=== PATIENT | female | born 1995 | race Caucasian/White ===

== ENCOUNTER 2023-09-11 08:16 | Inpatient (IN) ==
[2023-09-11] MEDS ORDERED: LIDOCAINE 1% LOCAL 20 ML VIAL INFIL PRN (08:59)
[2023-09-11] MEDS ORDERED: OXYTOCIN 30 UNITS/NSS 30 UNITS/500 ML BAG IV PRN (08:59)
--- NOTE | 2023-09-11 09:03 | History & Physical Report ---
Date of Service September 11, 2023 Assessment & Plan (1) Positive test for herpes simplex virus (HSV) antibody: (2) Carrier of group B Streptococcus: (3) Supervision of normal first : Plan Will admit to L&D for management of labor VSS Fetus cat 1 Patient without current genital HSV lesions Rh negative mother; may need Rhogam pp GBS positive; treat with PCN Rubella immune Pitocin as needed Epidural prn Patient in agreement History of Present Illness Chief Complaint: LABOR CHECK Primary Care Provider: NO PCP Any is a 28 y/o female currently at [facility] 38 1/7 WGA with an GENIA 09/24/23 as determined by certain LMP who is here for labor check after. She believes she broke her water earlier this morning around 4am, and has continued to leak fluid even after she arrived to the hospital. She has also been having contractions since 4:30am this morning that were occurring every 3 minutes and are still present but were not very consistent in their frequency. The intensity of her contractions has also increased since they started earlier this morning. She has not significant PMHx, but has had a positive result for genital HSV in blood work for which she was started on Valtrex at 36 wga, but has not had any lesions or prodrome. (+) contractions (+) movement (+) fluid loss (-) bloody show External FHT and external uterine monitors used * Category 1 tracing * Moderate FHT variability. Had regular appointments since 1st trimester. OB Labs: Blood Type A Negative 02/27/23 Antibody Screen NEGATIVE 07/03/23 Hemoglobin 11.9 g/dl (12.0-16.0) L 07/03/23 Hematocrit 34.9 % (37.0-47.0) L 07/03/23 Mean Corpuscular Volume 90.2 fL (80.0-100.0) 02/27/23 Platelet Count 292 K/uL (130-400) 02/27/23 Rubella IgG Antibody Immune (Immune) 02/27/23 Rapid Plasma Reagin Nonreactive (Nonreactive) 02/27/23 Hepatitis B Surface Antigen. NON-REACTIVE (NON-REACTIVE) 02/27/23 Hepatitis C Antibody (EIA) NON-REACTIVE (NON-REACTIVE) 02/27/23 HIV (1&2) Ag and Ab Confirmation NON-REACTIVE (NON-REACTIVE) 02/27/23 Glucose 1 Hour 50 gm Load 117 mg/dl (70-130) 07/10/23 OB Optional Labs: Chlamydia trachomatis RNA Not Detected (NotDetected) 02/27/23 Neisseria gonorrhoeae RNA Not Detected (NotDetected) 02/27/23 Labs Reviewed: Declines genetics--mln Allergies Allergy/AdvReac Type Severity Reaction Status Date / Time No Known Allergies Allergy Verified 09/06/23 10:35 Home Medications Medication Instructions Recorded Confirmed Type 21-iron fu-folic acid PO 02/22/23 09/06/23 History [ Complete] promethazine 12.5 mg rectal 12.5 mg RI Q6H PRN nausea and 03/25/23 09/06/23 Rx suppository vomiting #12 ea valacyclovir 500 mg tablet 500 mg PO BID #60 tabs 08/27/23 09/11/23 Rx (Valtrex) Patient History Medical History (Updated 09/11/23 @ 08:22 by Ingrid Swan RN) PTSD (post-traumatic stress disorder) Something that happened in the [employer] that the patient does not wish to discuss. Not on ant medications at this time. Varicella vaccination Surgical History (Updated 09/11/23 @ 08:21 by Ingrid Swan RN) Status post surgery nerve ablation of cervix. S/P wisdom tooth extraction S/P breast augmentation 2017, 2019, 2019, 2020 Family History (Updated 02/22/23 @ 15:07 by Rhiannon Wilde) Denies family history of Ovarian cancer Breast cancer Colorectal cancer Social History (Updated 09/11/23 @ 08:24 by Ingrid Swan RN) Smoking Status: Never smoker Do You Dip or Chew Tobacco: No; Hx Alcohol Use: No Hx Substance Use: No Preferred Language: Yi Communication Ability: Effective Concrete Paver Required: No Beliefs That Will Affect Care: None marital status: Single marital status details: AUGIE Chapman (33) [phone] Current Living Situation: Alone Current Living Situation Comment: lives alone, no pets current occupational status: employed current occupation: [employer] Other Information That Helps Us Care for You: No Feels Safe at Home: Yes Safety Concerns: Feels Safe At This Time Diet: regular Assistive Devices: None ASSOCIATE SALES MANAGER History Last menstrual period: Yes Menstrual reliability: definite Flow: normal Menstrual regularity: regular Monthly: Yes Age at menarche: 13 On control pills at conception: No Date of positive home test: 01/17/23 Menstrual history comments: cycles 28-30 days Details: last pap 2020 - Normal Review of Systems no fever, no chills and no sweats Denies changes in vision. Denies shortness of breath or respiratory difficulty. no chest pain and no palpitations no dysuria no headache(s) Physical Exam Physical Exam: General: Alert, oriented x3. Afebrile. No acute distress. Eyes: Pupils equal and reactive to light bilaterally. Extraocular movement intact bilaterally. Cardiac: Regular rate and rhythm, no murmurs/rubs/gallops. Respiratory: Clear to auscultation bilaterally a/p, no wheezes/rales/rhonchi. No increased work of breathing. Symmetrical chest rise. No respiratory distress. Abdomen: Gravid; FHR baseline of 145-150 bpm; Vertex position Pelvic: 3 / 100 / -[address] Brasher Lower Extremities: No lower extremity edema or swelling. No deep calf pain. Leila's negative bilaterally Results & Data Vital Signs (Past 12 Hours) Vital Signs Temp Resp 09/11/23 08:25 36.8 C 20
[2023-09-11] MEDS: LACTATED RINGER'S 1,000 ML IV PRN (09:22)
[2023-09-11] MEDS: PENICILLIN GK 6 MU in DEXTROSE 5% 250 ML IV STA (09:35)
[2023-09-11 09:54] LABS: Hematocrit (blood only) 36.8 % (37.0-47.0); Hemoglobin 12.5 g/dl (12.0-16.0); Mean Corpuscular Hemoglobin 29.7 pg (25.0-34.0); Mean Corpuscular Volume 87.4 fL (80.0-100.0); Mean Platelet Volume 11.4 fL (9.4-12.4); Platelet Count 236 K/uL (130-400); RDW Coefficient of Variation 12.6 % (11.5-14.5); RDW Standard Deviation 39.4 fL (36.4-46.3); Red Blood Count 4.21 M/uL (4.20-5.40); White Blood Count 13.11 K/ul (4.8-10.8)
[2023-09-11] MEDS ORDERED: NALOXONE HCL 1 MG in SODIUM CHLORIDE 0.9% 1,000 ML IV PRN (10:12)
[2023-09-11] MEDS ORDERED: NALOXONE HCL 0.4 MG/1 ML VIAL/CARP IV PRN (10:12)
[2023-09-11] MEDS ORDERED: ROPIVACAINE 0.5% PF 5 MG/ML 20 ML VIAL EPI PRN (10:12)
[2023-09-11] MEDS ORDERED: fentANYL 2 MCG/ML BUPIVacaine 0.125%-NSS 100ML BAG EPI PRN (10:12)
[2023-09-11] MEDS ORDERED: diphenhydrAMINE 50 MG/ML VIAL IV PRN (10:12)
[2023-09-11] MEDS ORDERED: fentaNYL citrate PF 100 MCG/2 ML VIAL EPI PRN (10:12)
[2023-09-11] MEDS ORDERED: NALBUPHINE HCL 5 MG in SYRINGE 0 ML IV PRN (10:12)
[2023-09-11] MEDS ORDERED: LIDOCAINE 2% MPF LOCAL 5 ML VIAL EPI PRN (10:12)
[2023-09-11] MEDS ORDERED: ePHEDrine sulfate 50 MG/ML AMP IV PRN (10:12)
[2023-09-11] MEDS ORDERED: SODIUM CHLORIDE 0.9% PF INJ 10 ML VIAL EPI PRN (10:12)
[2023-09-11] MEDS ORDERED: BUPIVACAINE 0.25% PF 30 ML VIAL EPI PRN (10:12)
--- NOTE | 2023-09-11 10:12 | Anesthesiology Consultation ---
Date of Service September 11, 2023 Assessment & Plan ASA ASA2 Proposed Anesthesia Anesthesia Type: Labor Epidural Risk / Benefits Reviewed With: PT / POA / Parent / Guardian, Accepts Plan and Informed Consent Obtained History Height/Weight Height: 5 ft 4 in Weight: 69.853 kg Allergies Allergy/AdvReac Type Severity Reaction Status Date / Time No Known Allergies Allergy Verified 09/06/23 10:35 Medications Home Medications Medication Instructions Recorded Confirmed Last Taken 21-iron fu-folic acid PO 02/22/23 09/06/23 09/11/23 [ Complete] promethazine 12.5 mg rectal 12.5 mg VT Q6H PRN nausea and 03/25/23 09/06/23 Unknown suppository vomiting #12 ea valacyclovir 500 mg tablet 500 mg PO BID #60 tabs 08/27/23 09/11/23 09/10/23 (Valtrex) Active Medications Generic Name Dose Route Start Last Admin Trade Name Freq PRN Reason Stop Dose Admin Lactated Ringer's 1,000 mls @ 125 mls/hr 09/11/23 08:59 09/11/23 10:20 Lr IV 09/13/23 08:58 999 mls/hr .Q8H PRN Administration L&D Protocol Protocol Past Medical History Medical History PTSD (post-traumatic stress disorder) Something that happened in the [employer] that the patient does not wish to discuss. Not on ant medications at this time. Varicella vaccination Exercise / Class Metabolic Activity II 4-5 Yardwork/Stairs/Walk up hill Past Family History Family History Denies family history of Ovarian cancer Breast cancer Colorectal cancer Past Surgical History Surgical History Status post surgery nerve ablation of cervix. S/P wisdom tooth extraction S/P breast augmentation 2017, 2018, 2019, 2020 Past Anesthesia History No Hx of Anesthesia Complications and No Family Hx of Anesthesia Complications History of PONV No Hx of PONV and No Hx of Motion Sickness Social History Smoking Status: Never smoker Do You Dip or Chew Tobacco: No Hx Alcohol Use: No Hx Substance Use: No Review of Systems denies fever/cough/ colds/ chest pain/ SOB/ SARATH denies SARATH Physical Exam Vital Signs Last Vital Signs Temp 36.8 C 09/11/23 08:25 Pulse 88 09/11/23 10:35 Resp 20 09/11/23 08:25 BP 138/84 09/11/23 10:35 Pulse Ox 100 09/11/23 10:32 ENMT Mouth: no TMJ abnormality and no dentition abnormality Thyromental Distance: > or= 3.5 Finger Breadths Mallampati Class: II Neck neck extension not limited Respiratory normal respiratory effort; no respiratory distress Auscultation: lungs clear to auscultation bilaterally Cardiovascular Rate/Rhythm: regular rate and regular rhythm Neurologic moves all extremities Psychiatric Orientation: alert and oriented x 3 Testing Laboratory Results 09/11/23 09:11
[2023-09-11] MEDS: LIDOCAINE 2%/EPINEPHRINE 1:200,000 20 ML PF ONE ×2 (10:28→15:07)
[2023-09-11] MEDS: BUPIVACAINE 0.25% PF 30 ML VIAL ONE ×2 (10:29→15:07)
[2023-09-11] MEDS: fentaNYL citrate PF 100 MCG/2 ML VIAL ONE ×2 (10:29→15:07)
[2023-09-11] MEDS: fentANYL 2 MCG/ML BUPIVacaine 0.125%-NSS 100ML BAG ONE ×2 (10:31→15:25)
[2023-09-11] MEDS: ONDANSETRON INJ 2 MG/ML 2 ML VIAL IV PRN (11:38)
[2023-09-11] MEDS: ePHEDrine sulfate 50 MG/ML AMP ONE ×2 (11:50→15:44)
[2023-09-11] MEDS: SODIUM CHLORIDE 0.9% PF INJ 10 ML VIAL ONE ×2 (11:50→15:44)
[2023-09-11] MEDS: fentaNYL citrate PF 100 MCG/2 ML VIAL EPI STA (12:47)
[2023-09-11] MEDS: BUPIVACAINE 0.25% PF 30 ML VIAL EPI STA (12:47)
[2023-09-11] MEDS: SODIUM CHLORIDE 0.9% PF INJ 10 ML VIAL EPI STA (12:48)
[2023-09-11] MEDS: LIDOCAINE 2%/EPINEPHRINE 1:200,000 20 ML PF EPI STA (12:48)
[2023-09-11] MEDS: PENICILLIN GK 3 MU in DEXTROSE 5% 100 ML IV PRN (13:19)
[2023-09-11] MEDS ORDERED: NURSING L&D Epidural Breakthrough Pain Update ONE (14:27)
--- NOTE | 2023-09-11 15:41 | Communication Note ---
Date of Service: September 11, 2023 Pt with increased pain. Pt reports tingling in legs. Pt is far from delivery and feel that It is better to replace the epidural at a different area. epid ural removed with tip intact. L2-l3 interspace identified. sterile prep/drape/gloves used. 2% lido infiltrated. 18 g touey advanced to flex with air at 5 cm. Easy catheter thread. 2% lido with epi 4 cc injected. negative IV/IT. catheter secured. Divided doses with 100 mcg fentanyl and 5 cc 0.25% bupivicaine. vss. pt reporting better pain control
[2023-09-11] MEDS: OXYTOCIN 30 UNITS/NSS 30 UNITS/500 ML BAG IV PRN (18:37)
--- NOTE | 2023-09-11 19:14 | Delivery Summary ---
Vaginal Delivery Summary Date of Service September 11, 2023 Vaginal Delivery Summary DIAGNOSES: 1. Cobos intrauterine at 38w1d gestation. 2. Spontaneous onset of labor. 3. Group B Streptococcus Pos. PROCEDURE: Spontaneous vaginal delivery without laceration. SURGEON: Ambar Brasher MD. MEDICAL RECEPTIONIST MEDICAL ASSISTANT: None. ESTIMATED BLOOD LOSS: 250 mL. COMPLICATIONS: None. PLACENTA: Spontaneous and intact with a 3-vessel cord. DISPOSITION: Stable to labor and delivery. DESCRIPTION: The patient pushed well and brought the head to in DOA position. The 's head was allowed to deliver with contraction force and no further active pushing, with the perineum protected during this time. There was no nuchal cord. The right shoulder was anterior. The shoulders and body delivered without any difficulty, and the infant was placed on the maternal abdomen. It was vigorous and moving all extremities, and making respiratory efforts. The cord was doubly clamped by the MD and then cut by the FOB. The placenta delivered spontaneously and was noted to be intact and with a 3VC. The cervix, vagina and perineum were examined and were found to be without defect requiring repair. The fundus was firm and lochia minimal immediately after delivery. [facility] [place] Vaginal Delivery Charge Vaginal Delivery Codes: 40565 global code for the antepartum, delivery, and post-
[2023-09-11] MEDS ORDERED: ACETAMINOPHEN 325 MG TAB PO PRN (19:20)
[2023-09-11] MEDS ORDERED: oxyCODONE/ACETAMINOPHEN 5mg/325mg TAB PO PRN (19:20)
[2023-09-11] MEDS ORDERED: bisacodyL 10 MG SUPP PR PRN (19:20)
[2023-09-11] MEDS ORDERED: HYDROCORTISONE ACETATE 25 MG SUPP PR PRN (19:20)
[2023-09-11] MEDS: IBUPROFEN 600 MG TAB PO PRN (21:20)
[2023-09-11] MEDS: BENZOCAINE 20% SPRY 85 APPLN/85 GM CAN EXT PRN (21:20)
[2023-09-11] MEDS: DOCUSATE SODIUM 100 MG CAP PO SCH (21:21)
[2023-09-11] MEDS: DIPHTHER/TETAN/PERTUS Vaccine (Tdap, Adol/Adult) 0.5mL IM ONE (21:21)
--- NOTE | 2023-09-12 06:37 | Obstetrical Progress Note ---
Date of Service <Clara Kapoor MD - Last Filed: 09/12/23 06:52> September 12, 2023 Assessment & Plan <Clara Kapoor MD - Last Filed: 09/12/23 06:52> (1) Encounter for assessment: Plan Patient with the above mentioned history and findings was evaluated at bedside and found awake, alert, oriented in all spheres, afebrile, and in no acute distress. Vital signs showed no fever and blood pressures remained stable. Her blood type is A negative. Baby's BT for determination of indication for Rhogam prior to discharge pending. Hemoglobin is adequate at 11.0 g/dL. Serologies are positive for GBS (treated intrapartum with PCN) and patient is Rubella immune. Overall, patient is doing well clinically and meeting the desired milestone for her course. Therefore, will discharge patient today. Patient was counselled on discharge instructions. She is to make an appointment with her OB for 6 weeks after discharge for follow up evaluation. All questions were answered. <Ambar Brasher MD - Last Filed: 09/12/23 08:11> (1) Encounter for assessment: Subjective <Clara Kapoor MD - Last Filed: 09/12/23 06:52> Any is a 28 y/o female who is now PPD # 1 following at 38 1/7 weeks. Reports feeling well overall this morning. Refers mild abdominal cramping & 2/10 pain well managed on analgesics. Voiding spontaneously. Tolerating meals overnight and able to ambulate some. Has passed gas but no bm yet. Some persistent lochia with some improvement this morning. . Constitutional: no fever, no chills or no sweats Denies shortness of breath or difficulty breathing Cardiovascular: no chest pain or no palpitations Breast: no breast pain Genitourinary (female): no dysuria Neurologic: no headache(s) Denies changes in vision Physical Exam <Clara Kapoor MD - Last Filed: 09/12/23 06:52> General: Alert. Oriented to person, time, and place. Afebrile. No acute distress. Eyes: pupils equal and reactive to light bilaterally, extraocular movements intact. Cardiac: Regular rate and rhythm, no murmurs/rubs/gallops. Respiratory: Clear to auscultation bilaterally a/p, no wheezes/rales/rhonchi. No increased work of breathing. Symmetrical chest rise. No respiratory distress. Abdomen: Soft, nontender, nondistended. Bowel sounds present. Uterus: Uterine fundus firm, non tender, and palpable below umbilicus. Lower Extremities: No lower extremity edema or swelling. No deep calf pain. Leila's negative bilaterally. Psych: Euthymic affect. Mood and affect congruence. Regular speech rate and content. Results & Data <Clara Kapoor MD - Last Filed: 09/12/23 06:52> Vital Signs (Past 12 Hours) Vital Signs Temp Pulse Pulse Resp BP BP Pulse Ox 09/12/23 03:55 36.8 C 83 18 133/86 09/11/23 23:30 36.6 C 85 18 131/84 09/11/23 21:35 36.8 C 80 18 133/89 09/11/23 21:15 36.9 C 18 09/11/23 21:13 93 H 134/91 09/11/23 20:59 91 H 129/85 09/11/23 20:44 16 09/11/23 20:43 104 H 141/87 H 09/11/23 20:28 94 H 133/77 09/11/23 20:14 18 09/11/23 20:13 93 H 134/81 09/11/23 19:59 16 09/11/23 19:58 86 138/79 09/11/23 19:44 16 09/11/23 19:44 96 H 147/71 H 09/11/23 19:29 16 09/11/23 19:29 102 H 135/62 09/11/23 19:14 18 09/11/23 19:14 121 H 135/68 09/11/23 19:12 119 H 100 09/11/23 19:07 112 H 100 09/11/23 19:04 118 H 90 09/11/23 19:02 124 H 97 09/11/23 18:57 125 H 81 L 09/11/23 18:52 133 H 99 09/11/23 18:51 121 H 125/69 09/11/23 18:47 114 H 100 09/11/23 18:45 128 H 86 L 09/11/23 18:42 135 H 78 L 09/11/23 18:37 122 H 100 09/11/23 18:36 139 H 142/77 H 09/11/23 18:35 111 H 89 L Supervising Physician <Ambar Brasher MD - Last Filed: 09/12/23 08:11> Co-Signing Physician Notes Resident Physician Supervision Note: I interviewed and examined the patient. Discussed with Dr. Kapoor and agree with findings and plan as documented in the note. Any exceptions or clarifications are listed here: [ ] Documented By: Ambar Brasher MD, FACOG
[2023-09-12 06:49] LABS: Hematocrit (blood only) 32.9 % (37.0-47.0); Mean Corpuscular Hemoglobin 29.3 pg (25.0-34.0); Mean Corpuscular Hgb Conc 33.4 g/dL (32.0-36.0); Mean Corpuscular Volume 87.7 fL (80.0-100.0); Mean Platelet Volume 11.7 fL (9.4-12.4); Platelet Count 212 K/uL (130-400); RDW Coefficient of Variation 12.6 % (11.5-14.5); RDW Standard Deviation 40.1 fL (36.4-46.3); Red Blood Count 3.75 M/uL (4.20-5.40)
--- NOTE | 2023-09-12 08:51 | Anesthesia Procedure Note ---
Date of Service September 12, 2023 Anesthesia Post Epidural Note Vital Signs Vital Signs: Temp Pulse Resp BP Pulse Ox 98.2 F 83 18 133/86 100 09/12/23 03:55 09/12/23 03:55 09/12/23 03:55 09/12/23 03:55 09/11/23 19:12 Pain Intensity Bilateral Abdomen: Pain Intensity: 0 Notes Mental Status: alert / awake / arousable and participated in evaluation Nausea / Vomiting: adequately controlled Pain: adequately controlled Airway Patency, RR, SpO2: stable & adequate BP & HR: stable & adequate Hydration State: stable & adequate Neuraxial Anesthesia: was administered and sensory block is resolving Anesthetic Complications: no major complications apparent and Pt Satisfied with anesthetic care Epidural: Removed without complications and With tip intact
[2023-09-12] MEDS: PRENATAL VITAMIN 1 TAB PO SCH (09:02)
[2023-09-12] MEDS: bisacodyL 5 MG TABEC PO SCH (21:41)
[2023-09-12] MEDS: LABETALOL HCL 200 MG TAB PO ONE (22:57)
[2023-09-13 06:11] LABS: Hematocrit (blood only) 34.9 % (37.0-47.0); Hemoglobin 11.8 g/dl (12.0-16.0)
--- NOTE | 2023-09-13 06:46 | Obstetrical Progress Note ---
Date of Service <Clara Kapoor MD - Last Filed: 09/13/23 06:46> September 13, 2023 Assessment & Plan <Clara Kapoor MD - Last Filed: 09/13/23 06:46> (1) Encounter for assessment: Plan Patient with the above mentioned history and findings was evaluated at bedside and found awake, alert, oriented in all spheres, afebrile, and in no acute distress. Vital signs showed no fever and blood pressures remained stable. Her blood type is A negative. Baby's BT for determination of indication for Rhogam prior to discharge pending. Hemoglobin is adequate at 11.8 g/dL. Serologies are positive for GBS (treated intrapartum with PCN) and patient is Rubella immune. Overall, patient is doing well clinically and meeting the desired milestone for her course. Therefore, will discharge patient today. Patient was counselled on discharge instructions. She is to make an appointment with her OB for 6 weeks after discharge for follow up evaluation. All questions were answered. <Carolynn Enriquez MD, FACOG - Last Filed: 09/13/23 07:35> (1) Encounter for assessment: Day #:: 2 Subjective <Clara Kapoor MD - Last Filed: 09/13/23 06:46> Any is a 28 y/o female who is now PPD # 2 following at 38 1/7 weeks. Reports feeling well overall this morning. Refers mild abdominal cramping & 1/10 pain well managed on analgesics. Voiding spontaneously. Tolerating meals overnight and able to ambulate some. Has passed gas but no bm yet. Some persistent lochia with some improvement this morning. without difficulty. Constitutional: no fever, no chills or no sweats Denies shortness of breath or difficulty breathing Cardiovascular: no chest pain or no palpitations Breast: no breast pain Genitourinary (female): no dysuria Neurologic: no headache(s) Denies changes in vision Physical Exam <Clara Kapoor MD - Last Filed: 09/13/23 06:46> General: Alert. Oriented to person, time, and place. Afebrile. No acute distress. Eyes: pupils equal and reactive to light bilaterally, extraocular movements intact. Cardiac: Regular rate and rhythm, no murmurs/rubs/gallops. Respiratory: Clear to auscultation bilaterally a/p, no wheezes/rales/rhonchi. No increased work of breathing. Symmetrical chest rise. No respiratory distress. Abdomen: Soft, nontender, nondistended. Bowel sounds present. Uterus: Uterine fundus firm, non tender, and palpable below umbilicus. Lower Extremities: No lower extremity edema or swelling. No deep calf pain. Leila's negative bilaterally. Psych: Euthymic affect. Mood and affect congruence. Regular speech rate and content. Results & Data <Clara Kapoor MD - Last Filed: 09/13/23 06:46> Vital Signs (Past 12 Hours) Vital Signs Temp Pulse Resp BP BP Pulse Ox O2 Del Method 09/13/23 00:20 36.7 C 80 16 113/71 97 Room Air 09/12/23 21:45 36.8 C 84 18 150/105 H 150/96 H 100 Room Air Supervising Physician <Carolynn Enriquez MD, FACOG - Last Filed: 09/13/23 07:35> Co-Signing Physician Notes Resident Physician Supervision Note: I was present with Dr. Kapoor during the history and exam. I discussed the case with the resident and agree with the findings and plan as documented in the note. Any exceptions or clarifications are listed here: doing well, no omalley or visual change. had elevated bps yest and notes was having severe pain with ctx. other bps borderline but labile. started on labetalol 200mg po bid but then felt like her bp bottomed out and did not feel well. will dec dose of labetalol to 100mg po bid. otherwise meeting criteria for dc. and instructions have been reviewed. will need bp check mon or tu of next wk and will have her stay thru afternoon to see if bps stay under 150/100. pt agreeable. had rhogam, ri. abd soft ff2 down nt, nt calves. Documented By: Carolynn Enriquez MD, FACOG
[2023-09-13] MEDS: LABETALOL HCL 100 MG TAB PO SCH ×2 (08:23→15:20)
[2023-09-13] MEDS ORDERED: LABETALOL HCL 200 MG TAB PO SCH (09:00)
[2023-09-13 14:19] LABS: Hematocrit (blood only) 35.3 % (37.0-47.0); Hemoglobin 12.2 g/dl (12.0-16.0); Mean Corpuscular Hemoglobin 30.1 pg (25.0-34.0); Mean Corpuscular Hgb Conc 34.6 g/dL (32.0-36.0); Mean Corpuscular Volume 87.2 fL (80.0-100.0); Mean Platelet Volume 10.5 fL (9.4-12.4); Platelet Count 237 K/uL (130-400); RDW Coefficient of Variation 12.8 % (11.5-14.5); RDW Standard Deviation 40.1 fL (36.4-46.3); Red Blood Count 4.05 M/uL (4.20-5.40); White Blood Count 9.13 K/ul (4.8-10.8)
[2023-09-13 14:38] LABS: Albumin Globulin Ratio 1.2 (0.9-2); Albumin Level 3.2 gm/dl (3.4-5.0); BUN Creatinine Ratio 12.7 (10-20); Bilirubin,Total 0.4 mg/dl (0.2-1.0); Calcium 8.8 mg/dl (8.6-10.3); Creatinine Clr Calc Pharmacy 127.5 ml/min; Est GFR (African American) 141.5 ml/min; Est GFR (Non-African American) 122.1 ml/min; Globulin 2.7 gm/dl (2.5-4.0); Potassium 3.6 mmol/L (3.5-5.1); Total Protein 5.9 gm/dl (6.0-8.3)
--- NOTE | 2023-09-13 15:07 | Communication Note ---
Date of Service: September 13, 2023 Bp after lunch just under 150/100, noted mild [place] at that time but thought more caffeine related. Labs obtained out of precaution and wnl, hampton resolved w/ i buprofen. Recheck of BP 140s/80s. I think ok to dc as planned still but think 100mg q8 would be beneficial as bps are starting to creep up again since the initial good response from this AM and pt in agreement. Has appt on , reviewed PET precautions as well as hypotension precautions to call for as meds may need to be adjusted before visit. Pt verbalized understanding. Rx for labetalol 100mg q8h sent
== END 2023-09-13 15:35 | disposition home or self-care (01) | DRG 806 ==
LOC: OPB 08:16 → 4S1 08:19 → 4E2 21:56